=== PATIENT | female | born 1980 | race African-American/Black ===

== ENCOUNTER 2021-01-19 13:11 | Emergency (ER) | payer OTHER ==
[2021-01-19 13:46] VITALS: BP 104/63; PULSE 70; TEMP 98.3; BMI 22.1
[2021-01-19 15:50] LABS: BASO % 0.5 % (0-2.0); EOS % 0.6 % (0-4.5); HEMATOCRIT 31.4 % (32.4-45.2); LYMPH % 22.4 % (8-40); MCH 22.6 pg (25.7-33.7); MCHC 31.7 g/dl (32.0-36.0); MEAN CELL VOLUME 71.2 fl (80-96); MEAN PLT VOLUME 8.5 fl (7.5-11.1); MONO % 8.8 % (3.8-10.2); NEUT % 67.7 % (42.8-82.8); PLATELET COUNT 338 10^3/uL (134-434); RBC 4.41 M/mm3 (3.60-5.2); RDW 16.9 % (11.6-15.6); WHITE BLOOD COUNT 5.5 K/mm3 (4.0-10.0)
[2021-01-19 16:11] LABS: CHLORIDE 108 mmol/L (98-107); SODIUM 139 mmol/L (136-145)
[2021-01-19 16:13] LABS: CALCIUM 8.7 mg/dL (8.5-10.1); GLUCOSE,RANDOM 76 mg/dL (74-106)
[2021-01-19 16:14] LABS: ALBUMIN 3.5 g/dl (3.4-5.0); ANION GAP 8 MMOL/L (8-16); BLOOD UREA NITROGEN 13.2 mg/dL (7-18); CO2 23 mmol/L (21-32)
[2021-01-19 16:16] LABS: CREATININE 0.9 mg/dL (0.55-1.3); SGPT/ALT 20 U/L (13-61)
[2021-01-19 16:17] LABS: PH,URINE 5.5 (5.0-8.0); URINE APPEARANCE CLEAR; URINE BILIRUBIN NEGATIVE (NEGATIVE); URINE COLOR YELLOW; URINE GLUCOSE (UA) NEGATIVE (NEGATIVE); URINE KETONE TRACE (NEGATIVE); URINE LEUK ESTERASE NEGATIVE (NEGATIVE); URINE NITRITE NEGATIVE (NEGATIVE); URINE PROTEIN TRACE (NEGATIVE)
[2021-01-19 16:17] LABS: SGOT/AST 11 U/L (15-37)
[2021-01-19 16:18] LABS: BILIRUBIN,TOTAL 0.2 mg/dL (0.2-1); TOT PROT 7.8 g/dl (6.4-8.2)
[2021-01-19 16:19] LABS: ALK PHOS 68 U/L (45-117)
[2021-01-19 16:20] LABS: HCG,QUALITATIVE URINE Negative
== END 2021-01-19 16:55 | disposition home or self-care (01) ==
LOC: JER 13:11
DX: R06.02 Shortness of breath (principal)
CPT/HCPCS: 36415; 71046-TC-FY; 71275-TC; 80053; 81003; 82550; 82728; 83010; 83540; 83550; 83615; 84155; 84165; 84466; 84484; 84703; 85025; 85045; 85379; 85660; 93005; 93010; 93970-TC; 99285-25; C9803; Q9967; U0003; U0005

== ENCOUNTER 2021-01-19 20:46 | Emergency (ER) | payer OTHER ==
[2021-01-19 20:49] VITALS: BMI 24.4
[2021-01-19 22:30] LABS: BASO % 0.3 % (0-2.0); EOS % 0.8 % (0-4.5); HEMATOCRIT 29.7 % (32.4-45.2); HEMOGLOBIN 9.5 GM/dL (10.7-15.3); LYMPH % 27.7 % (8-40); MCH 22.6 pg (25.7-33.7); MCHC 32.1 g/dl (32.0-36.0); MEAN CELL VOLUME 70.4 fl (80-96); MEAN PLT VOLUME 8.2 fl (7.5-11.1); NEUT % 60.2 % (42.8-82.8); PLATELET COUNT 341 10^3/uL (134-434); RBC 4.22 M/mm3 (3.60-5.2); RDW 16.8 % (11.6-15.6); WHITE BLOOD COUNT 7.1 K/mm3 (4.0-10.0)
[2021-01-19 22:43] LABS: SICKLE CELL SCREEN NEGATIVE (NEGATIVE)
[2021-01-19 22:49] LABS: RETICULOCYTES 1.04 % (0.5-1.5)
[2021-01-19 23:26] LABS: CHLORIDE 108 mmol/L (98-107); SODIUM 138 mmol/L (136-145)
[2021-01-19 23:29] LABS: CALCIUM 8.4 mg/dL (8.5-10.1)
[2021-01-19 23:30] LABS: ALBUMIN 3.2 g/dl (3.4-5.0); ANION GAP 6 MMOL/L (8-16); BLOOD UREA NITROGEN 12.6 mg/dL (7-18); CO2 25 mmol/L (21-32); GLUCOSE,RANDOM 76 mg/dL (74-106)
[2021-01-19 23:33] LABS: ALK PHOS 65 U/L (45-117); CREATININE 0.9 mg/dL (0.55-1.3); SGOT/AST 11 U/L (15-37); SGPT/ALT 19 U/L (13-61)
[2021-01-19 23:34] LABS: BILIRUBIN,TOTAL 0.2 mg/dL (0.2-1); LDH 168 U/L (84-246); TOT PROT 7.4 g/dl (6.4-8.2)
[2021-01-20 00:34] VITALS: BP 106/63; PULSE 64; TEMP 98.4
[2021-01-20 00:36] LABS: IRON SERUM 18 ug/dL (50-175); TOTAL IRON BINDING CAPACITY 542 ug/dL (250-450)
== END 2021-01-20 00:27 | disposition home or self-care (01) ==
LOC: JER 20:46
DX: R06.02 Shortness of breath (principal)
CPT/HCPCS: 36415; 71275-TC; 80053; 82550; 82728; 83010; 83540; 83550; 83615; 84155; 84165; 84466; 84484; 85025; 85045; 85660; 93005; 93010; 93970-TC; 99285-25; Q9967